=== PATIENT | female | born 1985 | race Caucasian/White ===

== ENCOUNTER → 2024-04-14 09:13 | Outpatient (REF) | payer OTHER, SELFPAY | LOC: RAD 09:13 | PROVIDERS: ATTENDING PHYSICIAN Family Medicine | DX: R06.83 Snoring (principal); F45.8 Other somatoform disorders | CPT/HCPCS: 70486 ==

== ENCOUNTER → 2024-04-19 08:00 | Outpatient (REF) | payer OTHER, SELFPAY | LOC: WDC 08:00 | PROVIDERS: ATTENDING PHYSICIAN Family Medicine | DX: Z12.31 Encounter for screening mammogram for malignant neoplasm of breast (principal) | CPT/HCPCS: 77063; 77067 ==

== ENCOUNTER → 2025-04-22 08:32 | Outpatient (REF) | payer OTHER, SELFPAY | LOC: WDC 08:32 | PROVIDERS: ATTENDING PHYSICIAN Family Medicine | DX: Z12.31 Encounter for screening mammogram for malignant neoplasm of breast (principal) | CPT/HCPCS: 77063; 77067 ==

== ENCOUNTER → 2025-05-12 12:00 | Outpatient (REF) | payer OTHER, SELFPAY | LOC: DHSLP 12:00 | PROVIDERS: ATTENDING PHYSICIAN Family Medicine | DX: G47.33 Obstructive sleep apnea (adult) (pediatric) (principal) | CPT/HCPCS: 95800 ==